=== PATIENT | male | born 1950 | race Caucasian/White ===

== ENCOUNTER 2019-08-29 07:44 | Outpatient (CLI) | payer MEDICARE, BC ==
[2019-08-29 12:34] LABS: Hemoglobin 15.4 g/dL (14.0-18.0); Lymphocytes 37 % (21-51); MDiff Complete? YES; Mean Corpuscular HGB CONC 33.8 g/dL (32.0-36.0); Mean Corpuscular Hemoglobin 34.3 pg (27.0-31.0); Mean Platelet Volume 8.9 fL (7.4-10.4); Monocytes 8 % (0-10); Neutrophil 54 % (42-75); Platelet Count 189 thou/uL (130-400); RBC Distribution Width 10.8 % (11.5-14.5); RBC Morphology Normal; Reactive Lymphocytes 1 % (0-10); White Blood Cell (WBC) Count 11.4 thou/uL (4.8-10.8)
== END 2019-08-29 07:45 | disposition home or self-care (01) ==
LOC: LABBT 07:44
PROVIDERS: ATTEND Orthopaedic Surgery Hand Surgery
DX: Z01.812 Encounter for preprocedural laboratory examination (principal); M72.0 Palmar fascial fibromatosis [Dupuytren]
CPT/HCPCS: 85025; 85652

== ENCOUNTER 2019-08-31 05:43 | Day surgery (SDC) | payer MEDICARE, BC ==
[2019-08-29 10:52] VITALS: BMI 31.6
[2019-08-31] MEDS ORDERED: Bupivacaine PF 0.5% 30 ML VIAL ONE (06:35)
[2019-08-31] MEDS ORDERED: Heparin 10,000 UNITS/1 ML VIAL ONE (06:35)
[2019-08-31] MEDS ORDERED: Betamet Acet/Betamet Na Ph 30 MG/5 ML VIAL ONE (06:35)
[2019-08-31] MEDS ORDERED: Bacitracin Zinc Ointment 30 gm TUBE ONE (06:36)
[2019-08-31] MEDS ORDERED: Lidocaine 2% PF 5 ML VIAL ONE (06:36)
[2019-08-31] MEDS ORDERED: Fentanyl 100 MCG/2 ML VIAL ONE (06:43)
[2019-08-31] MEDS ORDERED: Sodium Chloride 0.9% 10 ML ONE (08:22)
[2019-08-31] MEDS ORDERED: Lidocaine 1% PF 5 ML VIAL ONE (10:37)
[2019-08-31] MEDS ORDERED: Ketorolac Tromethamine 30 MG/ML VIAL ONE (10:37)
[2019-08-31] MEDS ORDERED: Dexamethasone 20 MG/5 ML VIAL ONE (10:37)
[2019-08-31] MEDS ORDERED: Calcium Chloride 1 GM/10 ML Abboject SYRINGE ONE (10:37)
[2019-08-31] MEDS ORDERED: Rocuronium Bromide 10 MG/ML (10ML VIAL) ONE (10:37)
[2019-08-31] MEDS ORDERED: Ropivacaine 0.2% HCl/PF (40 MG/20 ML VIAL) ONE (10:37)
[2019-08-31] MEDS ORDERED: Ondansetron PF 4 MG/2 ML Vial ONE (10:37)
[2019-08-31] MEDS ORDERED: PROPOFOL 200 MG/20 ML VIAL ONE (10:37)
[2019-08-31] MEDS ORDERED: Succinylcholine Chloride 20 MG/ML 10 ml SYRINGE FS ONE (10:37)
[2019-08-31] MEDS ORDERED: EPHEDRINE 25 MG/5 ML SYRINGE ONE (10:37)
[2019-08-31] MEDS ORDERED: PHENYLEPHRINE-NS 100 MCG/ML 10 ML SYRINGE ONE (10:37)
--- NOTE | 2019-09-03 08:51 | OP ---
DATE OF PROCEDURE: 08/31/2019 PREOPERATIVE DIAGNOSES: 1. Left small finger severe Dupuytren's. 2. Left ring finger severe Dupuytren's. POSTOPERATIVE DIAGNOSES: 1. Left small finger severe Dupuytren's. 2. Left ring finger severe Dupuytren's. PROCEDURE PERFORMED: 1. Left small finger: a. Digital nerve neuroplasty, radial and ulnar. b. Subtotal palmar fasciectomy. 2. Left ring finger. a. Digital nerve neuroplasty, radial and ulnar. b. Subtotal palmar fasciectomy. BLOOD LOSS: Estimated at 20 mL. TOURNIQUET TIME: 90 minutes. ANESTHESIA: General LMA technique by [place] Anesthesia, augmented by 20 mL prior to incision of Marcaine block 0.5% without epinephrine. SPECIMEN SENT: Yes, the Dupuytren's cord, which was almost 8 cm long and a very thick wide pattern, almost 4.5 mm thick. DESCRIPTION OF PROCEDURE: After successful general endotracheal anesthesia, limb was prepped and draped. 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 We outlined a zigzag incision with a small transverse limb, connecting slightly oblique to the webspace between the 4th and 5th carpometacarpal joints to connect to Ashly incisions. We then carried through the skin and subcutaneous tissue with the Ashly incision ending midway between the proximal phalangeal and distal phalangeal joints of both fingers. First, we developed the proximal end, saw the very thick palmar fascia involving the entire small, ring, and even long finger area. We then delineated the digital nerves at the level of the A1 michelle and did a complete neuroplasty of both nerves, finding that both radial digital nerves were completely brought across the midline by both cords. We then completed under magnification the radial and ulnar nerve neuroplasty on both sides, protected not only the nerve, but the artery as part of the bundle, and then began distally to remove the lesion. The ring finger lesion even had a Y insertion on both radial and ulnar aspect of the volar plate and we resected this, protecting the nerves and then performed a sub-palmar fasciectomy back to the level of the transverse carpal ligament in line with the ring and long finger. Then, we performed the release distally at the level of the volar plate and the skin on the radial aspect after digital neuroplasty and then lifted this out slowly with the sharp and blunt dissection combination under magnification until we reached the level of the transcarpal ligament. Both specimens were sent to the lab. We then placed Celestone in the wound, released the tourniquet, and circulation returned with both fingers pink without complication. We then closed the incisions distal to the mid palmar crease with 4-0 nylon, proximal with 3-0 nylon interrupted simple pattern. The digits could achieve +10 hyperextension at the proximal phalangeal joint and -10 extension at the ring finger. We also found the ring finger volar plate and collateral ligaments were severely insufficient. We placed the patient in a bulky dressing using webspace technique and a palmar splint with the PIP at 0, the MP joint of the small finger at 0, and the MP joint of the ring finger -10. He left the operating room without evidence of anesthetic or operative complication. Job ID: [id number]
== END 2019-08-31 12:59 | disposition home or self-care (01) ==
LOC: SDC 05:43
PROVIDERS: ATTEND Orthopaedic Surgery Hand Surgery
PROC: 0JNK0ZZ Release Left Hand Subcutaneous Tissue and Fascia, Open Approach (ICD-10-PCS; principal; 2019-08-31)
PROC: 0LN80ZZ Release Left Hand Tendon, Open Approach (ICD-10-PCS; 2019-08-31)
PROC: 0LN80ZZ Release Left Hand Tendon, Open Approach (ICD-10-PCS; 2019-08-31)
PROC: 01N60ZZ Release Radial Nerve, Open Approach (ICD-10-PCS; 2019-08-31)
PROC: 01N60ZZ Release Radial Nerve, Open Approach (ICD-10-PCS; 2019-08-31)
PROC: 01N40ZZ Release Ulnar Nerve, Open Approach (ICD-10-PCS; 2019-08-31)
PROC: 01N40ZZ Release Ulnar Nerve, Open Approach (ICD-10-PCS; 2019-08-31)
DX: M72.0 Palmar fascial fibromatosis [Dupuytren] (principal); M25.342 Other instability, left hand; M12.542 Traumatic arthropathy, left hand; T14.90XS Injury, unspecified, sequela; I11.0 Hypertensive heart disease with heart failure; I50.30 Unspecified diastolic (congestive) heart failure; I25.10 Atherosclerotic heart disease of native coronary artery without angina pectoris; Z87.891 Personal history of nicotine dependence; Z79.82 Long term (current) use of aspirin; Z79.899 Other long term (current) drug therapy; Z88.8 Allergy status to other drugs, medicaments and biological substances; X58.XXXS Exposure to other specified factors, sequela
CPT/HCPCS: 88304; 93005; 93010; J0690; J0702; J1100; J1644; J1885; J2001; J2405; J2704; J2795; J3010; J3490; S0020

== ENCOUNTER 2019-09-06 08:54 | Outpatient (CLI) | payer MEDICARE, BC ==
[2019-09-06 16:18] LABS: Bacteria/HPF None Seen HPF (None Seen); Bilirubin Negative (Negative); Blood, Urine Trace (Negative); Clarity Clear (Clear); Glucose, Urine (Dipstick) Normal (Negative); Leukocyte 25 Leu/uL (Negative); Nitrite Negative (Negative); Protein, Urine (Dipstick) 20 mg/dL (Neg-Trace); Squamous Epithelial None Seen HPF (0-3); Urobilinogen Normal mg/dL (Less than 2)
[2019-09-06 16:19] LABS: PTT 31.1 SEC (22.9-36.1); Prothrombin Time 13.2 SEC (12.0-14.7)
[2019-09-06 16:24] LABS: Hemoglobin 15.9 g/dL (14.0-18.0); Mean Corpuscular Hemoglobin 34.8 pg (27.0-31.0); Mean Corpuscular Volume 99.4 fL (78.0-98.0); Mean Platelet Volume 9.9 fL (7.4-10.4); Platelet Count 202 thou/uL (130-400); RBC Distribution Width 10.8 % (11.5-14.5); Red Blood Cell (RBC) Count 4.58 mill/uL (4.70-6.10); White Blood Cell (WBC) Count 13.2 thou/uL (4.8-10.8)
[2019-09-06 16:33] LABS: Anion Gap 15 mmol/L (10-20); BUN (Urea Nitrogen) 16 mg/dL (8.4-25.7); Calc. Creatinine Clearance 0 mL/min (70-130); Calcium 9.2 mg/dL (7.8-10.44); Carbon Dioxide 19 mmol/L (23-31); Chloride 108 mmol/L (98-107); Estimated GFR-MDRD 74; Glucose 107 mg/dL (80-115); Potassium 4.8 mmol/L (3.5-5.1); Sodium 137 mmol/L (136-145)
== END 2019-09-06 08:55 | disposition home or self-care (01) ==
LOC: LABBT 08:54
PROVIDERS: ATTEND Urology
DX: Z01.812 Encounter for preprocedural laboratory examination (principal); N20.1 Calculus of ureter
CPT/HCPCS: 80048; 81001; 85027; 85610; 85730; 87086

== ENCOUNTER 2019-09-14 08:53 | Day surgery (SDC) | payer MEDICARE, BC ==
[2019-09-06 15:28] VITALS: BMI 31.6
[2019-09-14] MEDS ORDERED: B & O ONE (10:37)
[2019-09-14] MEDS ORDERED: Iothalamate Meglumine 60% 50 ML VIAL FS ONE (10:37)
[2019-09-14] MEDS ORDERED: Levofloxacin 500 mg/D5W 100 ml Premix Bag ONE (10:41)
[2019-09-14] MEDS ORDERED: Fentanyl 100 MCG/2 ML VIAL ONE (12:08)
[2019-09-14] MEDS ORDERED: PROPOFOL 200 MG/20 ML VIAL ONE (12:17)
[2019-09-14] MEDS ORDERED: PHENYLEPHRINE-NS 100 MCG/ML 10 ML SYRINGE ONE (12:17)
[2019-09-14] MEDS ORDERED: Lidocaine 1% PF 5 ML VIAL ONE (12:17)
[2019-09-14] MEDS ORDERED: EPHEDRINE 25 MG/5 ML SYRINGE ONE (12:17)
--- NOTE | 2019-09-14 13:27 | OP ---
DATE OF PROCEDURE: 09/14/2019 SERVICE: Urology. PREOPERATIVE DIAGNOSIS: Right ureteral stone. POSTOPERATIVE DIAGNOSES: 1. Right ureteral stricture. 2. Right ureteral stone. 3. Bladder lesion. PROCEDURES PERFORMED: 1. Cystoscopy. 2. Right ureteral dilation. 3. Right ureteroscopy. 4. Laser lithotripsy. 5. Basket extraction of stone. 6. Placement of a 6 x 26 double-J stent. 7. Bladder biopsy. INDICATIONS FOR PROCEDURE: Mr. Blue is a 69-year-old white male who initially presented to me for a right ureteral stone. It was his only stone. He attempted a trial of passage, but reports he has not passed the stone. He is now coming in for definitive stone management. Risks and benefits of the procedure were discussed and he has agreed to proceed forward. DESCRIPTION OF PROCEDURE: After identification of armband and verification of consent, the patient was brought back to the operating room where he underwent general anesthesia with an LMA. He was then placed in the dorsal lithotomy position and prepped and draped in the usual sterile fashion. After appropriate time-out, a lubricated 22-Libyan rigid cystoscope was introduced per urethra into the bladder. Attention was turned to the right ureteral orifice. At this time, it was noted that there was an unusual frondular type lesion just superior to the right ureteral orifice. It was relatively flat and did not appear overly concerning for urothelial carcinoma, but did have an unusual appearance to it and was definitely noticeable difference from the surrounding tissues. I felt that it would be best if this was biopsied, but elected to go ahead and proceed with ureteroscopy first. A 0.035 Sensor wire was advanced through the right ureteral orifice to the level of renal pelvis. The cystoscope was then used to drain the bladder and then removed, leaving the Sensor wire in place as a safety wire. A semi-rigid ureteroscope was then brought in alongside the Sensor wire into the distal ureter, but it was noted to be extremely narrow in the distal ureter. With the assistance of a 2nd wire through the lumen of the ureteroscope, we attempted to pass through the lumen; however, there was significant scar tissue encountered and extreme narrowing. Through some manipulation, we were able to get the scope through the ureteral orifice; however, there was significant trauma to the mucosa of the ureter, but not to the muscularis and there was no complete ureteral perforation. Once the strictured area was bypassed, the stone was encountered in the upper portion of the distal ureter, attempts to laser the stone caused the stone to go retrograde further up the ureter where it could no longer be reached with the semi-rigid ureteroscope. The 2nd wire was brought back in through the ureteroscope and passed up to the renal pelvis. The ureteroscope removed. An 11/13-Libyan ureteral access sheath was advanced over the Sensor wire into the distal ureter to allow for further dilation of the distal ureter and access with the flexible scope. A flexible ureteroscope was then brought in through the ureteral access sheath after the inner cannula and a 2nd Sensor wire were removed, leaving the outer sheath in place. The stone was encountered again in the midureter now and was broken up using a 200 micron laser fiber into smaller pieces. A 1.9-Libyan ZeroTip Nitinol basket was then used to extract the pieces and sent for stone analysis. Upon completion, the only fragments left were dust fragments which were too small to grasp. Pull-back ureteroscopy was employed and no additional stones were found within the distal ureter. Given the amount of urothelial trauma, I did feel a stent was absolutely necessary and will probably need to stay in place for 2 weeks. The rigid cystoscope was then brought back in over the Sensor wire back into the bladder and a 6 x 26 double-J stent with no string attached was advanced over the Sensor wire up to the level of proximal ureter and into the renal pelvis. The wire was removed, leaving a partial curl in the kidney and a good curl in the bladder. The bladder was then drained and a flexible biopsy forceps was brought in and used to biopsy the lesion just cephalad to the right ureteral orifice. This was sent off for routine pathologic evaluation. Using a Bugbee electrode, the area was cauterized to ensure complete destruction and hemostasis of the area. The cystoscope was then used to drain the bladder and removed. B and O suppository was placed in the patient's rectum. He was then awakened, taken to PACU for recovery in stable condition. COMPLICATIONS: None. ESTIMATED BLOOD LOSS: Minimal. RETAINED TUBES AND DRAINS: A 6 x 26 double-J stent on the right. SPECIMENS: Stone for stone analysis and bladder biopsy. DISPOSITION: The patient will be discharged home and follow up with me in 2 weeks for cystoscopy and stent removal. We will need to follow him closely for development of ureteral stricture. Job ID: [id number]
[2019-09-14] MEDS ORDERED: Morphine 4 MG/ML VIAL ONE (13:56)
[2019-09-14] MEDS ORDERED: HYDROcodone/Acetaminophen 5/325 mg Tablet ONE ×2 (15:08)
== END 2019-09-14 16:30 | disposition home or self-care (01) ==
LOC: SDC 08:53
PROVIDERS: ATTEND Urology
PROC: 0TF68ZZ Fragmentation in Right Ureter, Via Natural or Artificial Opening Endoscopic (ICD-10-PCS; principal; 2019-09-14)
PROC: 0T768DZ Dilation of Right Ureter with Intraluminal Device, Via Natural or Artificial Opening Endoscopic (ICD-10-PCS; 2019-09-14)
PROC: 0TBB8ZX Excision of Bladder, Via Natural or Artificial Opening Endoscopic, Diagnostic (ICD-10-PCS; 2019-09-14)
DX: N20.1 Calculus of ureter (principal); N13.5 Crossing vessel and stricture of ureter without hydronephrosis; N30.20 Other chronic cystitis without hematuria; I11.0 Hypertensive heart disease with heart failure; I50.32 Chronic diastolic (congestive) heart failure; I25.10 Atherosclerotic heart disease of native coronary artery without angina pectoris; I77.819 Aortic ectasia, unspecified site; Z87.891 Personal history of nicotine dependence; Z79.82 Long term (current) use of aspirin; Z79.899 Other long term (current) drug therapy; Z88.8 Allergy status to other drugs, medicaments and biological substances
CPT/HCPCS: 52204; 52356; 76000; 82365; 88300; 88305; C1769; J1956; J2001; J2270; J2704; J3010

== ENCOUNTER 2019-10-09 06:35 | Day surgery (SDC) | payer MEDICARE, BC ==
[2019-10-08 11:56] VITALS: BMI 32.5
[2019-10-09 08:25] LABS: Hemoglobin 15.4 g/dL (14.0-18.0); Mean Corpuscular HGB CONC 33.9 g/dL (32.0-36.0); Mean Corpuscular Hemoglobin 33.6 pg (27.0-31.0); Mean Corpuscular Volume 99.2 fL (78.0-98.0); Mean Platelet Volume 9.3 fL (7.4-10.4); Platelet Count 197 thou/uL (130-400); RBC Distribution Width 10.6 % (11.5-14.5); Red Blood Cell (RBC) Count 4.59 mill/uL (4.70-6.10); White Blood Cell (WBC) Count 12.6 thou/uL (4.8-10.8)
[2019-10-09 09:02] LABS: Band 1 % (5-11); Eosinophils 2 % (0-10); Lymphocytes 61 % (21-51); MDiff Complete? YES; Monocytes 3 % (0-10); Neutrophil 33 % (42-75); Platelet Morphology Comment Appears Adequate; RBC Morphology Normal
[2019-10-09] MEDS ORDERED: Bacitracin Zinc Ointment 30 gm TUBE ONE (09:02)
[2019-10-09] MEDS ORDERED: Sodium Chloride 0.9% 10 ML ONE (09:02)
[2019-10-09] MEDS ORDERED: Fentanyl 100 MCG/2 ML VIAL ONE ×2 (09:06→10:59)
[2019-10-09] MEDS ORDERED: PHENYLEPHRINE-NS 100 MCG/ML 10 ML SYRINGE ONE (09:39)
[2019-10-09] MEDS ORDERED: Ketorolac Tromethamine 30 MG/ML VIAL ONE (09:39)
[2019-10-09] MEDS ORDERED: PROPOFOL 200 MG/20 ML VIAL ONE (09:39)
[2019-10-09] MEDS ORDERED: EPHEDRINE 25 MG/5 ML SYRINGE ONE (09:39)
[2019-10-09] MEDS ORDERED: Dexamethasone 20 MG/5 ML VIAL ONE (09:39)
[2019-10-09] MEDS ORDERED: Ondansetron PF 4 MG/2 ML Vial ONE (09:39)
[2019-10-09] MEDS ORDERED: Lidocaine 1% PF 5 ML VIAL ONE (09:39)
[2019-10-09] MEDS ORDERED: Bupivacaine PF 0.5% 30 ML VIAL ONE (10:58)
--- NOTE | 2019-10-09 12:52 | OP ---
DATE OF PROCEDURE: 10/09/2019 PREOPERATIVE DIAGNOSES: Left open wound 2 x 1 cm at the junction of the palmar ring finger and the palmar hand. POSTOPERATIVE DIAGNOSES: Left open wound 2 x 1 cm at the junction of the palmar ring finger and the palmar hand. FINDINGS: No exposed paratenon after debridement. PROCEDURES PERFORMED: 1. Debridement of wound, intermediate depth down to but not including the tendon sheath. 2. A 2 x 1.5 cm split-thickness skin graft harvested from the ipsilateral antecubital fossa. COMPLICATIONS: None. TOURNIQUET TIME: None. ESTIMATED BLOOD LOSS: Less than 5 mL. INJECTABLE: 10 mL of 0.5% Marcaine before incision at the surgical site and at the donor site. INDICATIONS: The patient had a Dupuytren's release approximately five weeks ago. At week 3, when the sutures were removed, he had no problems, but he developed a wound dehiscence, which was stitched two weeks ago, but it has not healed and sutures had pulled apart because of friable tissue. We believe that skin graft is indicated as he has failed standard repair. DESCRIPTION OF PROCEDURE: After successful general endotracheal anesthesia, limb was prepped and draped. Time-out was done appropriately. He had general LMA technique. We then gave him the 10 mL of 0.5% Marcaine block at the antecubital fossa proximal to where the skin graft would be harvested and a block in the palm with 10 mL 0.5% Marcaine with epinephrine proximal to his incision open area. We then performed debridement, which was excisional. We used a combination of [place] blade, curette, and irrigation. We had bleeding tissue. Deep in the wound, we could not see the tendon. There was no exposed tendon and only 1 area where you could see glistening paratenon. We then had bleeding tissue at the recipient site, placed a moist dressing, turned our attention to the donor site. At that point, we then took an ellipse that was 2.5 cm long and 1.5 cm wide, long enough to cover the wound and have some inside of the wound, which was approximately 2 mm deep. We then de-fatted the tissue. We placed 4 corner sutures with 3-0 nylon in the graft over the recipient site, ran a 5-0 chromic to repair using only the edges of the donor skin, so that we would have adequate coverage deep in the wound and tied this on itself. We then placed bacitracin, Adaptic, bolster with 1 mineral oil soaked cotton ball, which was tied with 2 separate sutures, one from medial to lateral and one from distal to proximal. We then closed the donor site with a running 3-0 Monocryl subcutaneously and a 3-0 nylon epidermal closure. Bacitracin and Adaptic were applied here along with 4x4s. Hand dressing was accomplished with 4x4s between the digits along with Kerlix at each site. Uriel wrap was then run from the base of the middle finger all the way to 6 cm proximal to the antecubital fossa and the patient left the operating room with a pink finger. No evidence of anesthetic or operative complications. Job ID: [id number]
== END 2019-10-09 12:55 | disposition home or self-care (01) ==
LOC: SDC 06:35
PROVIDERS: ATTEND Orthopaedic Surgery Hand Surgery
PROC: 0HRGX74 Replacement of Left Hand Skin with Autologous Tissue Substitute, Partial Thickness, External Approach (ICD-10-PCS; principal; 2019-10-09)
DX: T81.31XA Disruption of external operation (surgical) wound, not elsewhere classified, initial encounter (principal); I11.0 Hypertensive heart disease with heart failure; I50.30 Unspecified diastolic (congestive) heart failure; I25.10 Atherosclerotic heart disease of native coronary artery without angina pectoris; Z87.891 Personal history of nicotine dependence; Z79.82 Long term (current) use of aspirin; Z79.899 Other long term (current) drug therapy; Z88.8 Allergy status to other drugs, medicaments and biological substances; Z98.890 Other specified postprocedural states
CPT/HCPCS: 36415; 85025; J0690; J1100; J1885; J2001; J2405; J2704; J3010; J3490; S0020

== ENCOUNTER 2020-01-11 12:09 | Outpatient (CLI) | payer MEDICARE, BC, OTHER ==
[2020-01-12 13:17] LABS: SARS-CoV-2 MS2 Positive; SARS-CoV-2 N Gene Negative; SARS-CoV-2 S Gene Negative; SARS-CoV-2 orf1ab Negative
== END 2020-01-11 12:10 | disposition home or self-care (01) ==
LOC: SCSLAB 12:09
PROVIDERS: ATTEND Surgery
DX: K44.9 Diaphragmatic hernia without obstruction or gangrene (principal); Z20.828 Contact with and (suspected) exposure to other viral communicable diseases
CPT/HCPCS: 87635; U0003

== ENCOUNTER 2020-01-15 09:35 | Outpatient (CLI) | payer MEDICARE, BC ==
--- NOTE | 2020-01-15 11:15 | RAD ---
Exam: Barium swallow esophagram HISTORY: Hiatal hernia. Comparison none FINDINGS: Initial college associate radiograph demonstrates a slightly elongated aorta. Normal cardiac silhouette. Lungs an d pleural spaces are clear. No pneumothorax or acute osseous abnormalities The cervical and thoracic esophagus have an overall normal course and caliber. No mucosal abnormality . There is mass effect upon the posterior esophagus at the C3-4 level due to a prominent cricopharyngeus. Small hiatal hernia is identified. No reflux during intermittent fluoroscopy. A bhargav dard barium tablet passes without difficulty. IMPRESSION: 1. No reflux during intermittent fluoroscopy. 2. Small hiatal hernia 3. 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
== END 2020-01-15 09:36 | disposition home or self-care (01) ==
LOC: RAD 09:35
PROVIDERS: ATTEND Surgery
DX: K44.9 Diaphragmatic hernia without obstruction or gangrene (principal); R13.10 Dysphagia, unspecified
CPT/HCPCS: 74220

== ENCOUNTER 2020-12-18 10:35 | Outpatient (CLI) | payer MEDICARE, BC ==
[2020-12-18 13:09] LABS: Anion Gap 15 mmol/L (10-20); BUN (Urea Nitrogen) 15 mg/dL (8.4-25.7); Calc. Creatinine Clearance 0 mL/min (70-130); Calcium 9.2 mg/dL (7.8-10.44); Carbon Dioxide 23 mmol/L (23-31); Chloride 104 mmol/L (98-107); Glucose 109 mg/dL (80-115); Potassium 4.5 mmol/L (3.5-5.1); Sodium 137 mmol/L (136-145)
[2020-12-18 13:55] LABS: Hemoglobin 15.5 g/dL (13.5-17.5); Mean Corpuscular HGB CONC 33.8 g/dL (32.0-36.0); Mean Corpuscular Hemoglobin 32.9 pg (27.0-33.0); Mean Corpuscular Volume 97.5 fl (81.2-95.1); Mean Platelet Volume 12.1 fl (7.4-10.4); Platelet Count 214 10x3/uL (150-450); RBC Distribution Width 11.3 % (11.5-14.5); Red Blood Cell (RBC) Count 4.71 10x6/uL (4.32-5.72); White Blood Cell (WBC) Count 16.1 10x3/uL (3.5-10.5)
[2020-12-18 13:56] LABS: MDiff Complete? YES
[2020-12-18 14:02] LABS: Eosinophils 1 % (0-10); Lymphocytes 58 % (21-51); Monocytes 3 % (0-10); Neutrophil 38 % (42-75)
[2020-12-18 14:04] LABS: Large Platelets SLIGHT; Platelet Morphology Comment Appears Adequate
[2020-12-18 14:13] LABS: #Basophils 0.1 10x3/uL (0.0-0.2); #Eosinphils 0.2 10x3/uL (0.0-0.5); #Monocytes 0.8 10x3/uL (0.0-1.1); #Neutrophils 5.9 10x3/uL (1.5-8.4); %Basophils 0.5 % (0.0-2.0); %Lymphocytes 55.8 % (18.0-47.0); %Neutrophils 37.1 % (40.0-75.0)
[2020-12-18 22:04] LABS: SARS-CoV-2 NAA Rapid Test Not Detected (NotDetected)
== END 2020-12-18 10:36 | disposition home or self-care (01) ==
LOC: LABBT 10:35
PROVIDERS: ATTEND Surgery
DX: Z01.812 Encounter for preprocedural laboratory examination (principal); K43.9 Ventral hernia without obstruction or gangrene; Z20.822 Contact with and (suspected) exposure to COVID-19
CPT/HCPCS: 80048; 85025; U0002; U0005

== ENCOUNTER 2020-12-23 06:01 | Day surgery (SDC) | payer MEDICARE, BC ==
[2020-12-19 14:47] VITALS: BMI 32.5
[2020-12-23] MEDS ORDERED: SUGAMMADEX SODIUM 200 MG/2 ML VIAL ONE (06:54)
[2020-12-23] MEDS ORDERED: Fentanyl 250 MCG/5 ML VIAL ONE (06:54)
[2020-12-23] MEDS ORDERED: Phenylephrine 10 MG/ML VIAL ONE (07:41)
[2020-12-23] MEDS ORDERED: Ketorolac Tromethamine 30 MG/ML VIAL ONE (07:53)
[2020-12-23] MEDS ORDERED: Glycopyrrolate 0.2 MG/ML 5 ML SYRINGE ONE (07:53)
[2020-12-23] MEDS ORDERED: Dexamethasone 20 MG/5 ML VIAL ONE (07:53)
[2020-12-23] MEDS ORDERED: Lidocaine 1% PF 5 ML VIAL ONE (07:53)
[2020-12-23] MEDS ORDERED: PROPOFOL 200 MG/20 ML VIAL ONE (07:53)
[2020-12-23] MEDS ORDERED: Rocuronium Bromide 10 MG/ML (10ML VIAL) ONE (07:53)
[2020-12-23] MEDS ORDERED: Bupivacaine 0.25% HCL 30 ML VIAL ONE (07:54)
[2020-12-23] MEDS ORDERED: Lidocaine 1% w/Epinephrine 1:100K 20 ML VIAL ONE (07:54)
[2020-12-23] MEDS ORDERED: Fentanyl 100 MCG/2 ML VIAL ONE (08:58)
== END 2020-12-23 10:35 | disposition home or self-care (01) ==
LOC: SDC 06:01
PROVIDERS: ATTEND Surgery
PROC: 0WUF4JZ Supplement Abdominal Wall with Synthetic Substitute, Percutaneous Endoscopic Approach (ICD-10-PCS; principal; 2020-12-23)
DX: K43.9 Ventral hernia without obstruction or gangrene (principal); I11.0 Hypertensive heart disease with heart failure; I50.30 Unspecified diastolic (congestive) heart failure; I25.10 Atherosclerotic heart disease of native coronary artery without angina pectoris; Z87.891 Personal history of nicotine dependence; Z79.82 Long term (current) use of aspirin; Z79.899 Other long term (current) drug therapy; Z88.8 Allergy status to other drugs, medicaments and biological substances
CPT/HCPCS: 49652; C1781; J0690; J1100; J1885; J2370; J2704; J3010; S0020

== ENCOUNTER 2021-03-04 09:12 | Outpatient (CLI) | payer MEDICARE, BC | END 2021-03-04 09:13 | disposition home or self-care (01) | LOC: BICULT 09:12 | PROVIDERS: ATTEND Urology | DX: N13.5 Crossing vessel and stricture of ureter without hydronephrosis (principal) | CPT/HCPCS: 76770 ==